=== PATIENT | female | born 1975 | race African-American/Black ===

== ENCOUNTER 2024-02-16 20:12 | Emergency (ER) | payer OTHER, SELFPAY ==
[2024-02-16 20:19] VITALS: BP 153/88; PULSE 100; RESP 16; TEMP 36.4; O2SAT 100
[2024-02-16 20:48] LABS: Add Urine Microscopic? NO; Appearance Urine Clear (Clear); Bilirubin Urine Negative (Negative); Blood Urine Negative (Negative); Color Urine Yellow (Yellow); Glucose Urine UA Negative (Negative); Ketones Urine Negative (Negative); Leukocyte Esterase Ur Negative LEU/UL (Negative); Nitrate Urine Negative (Negative); Protein Urine Negative (Negative); Specific Grav Ur 1.014 (1.001-1.035); Urobilinogen Urine 0.2 mg/dL (<2.0)
[2024-02-16 20:54] VITALS: BP 107/72; PULSE 85; RESP 18; O2SAT 100
[2024-02-16] MEDS: SODIUM CHLORIDE 0.9% IV 1,000 ML 999 ML IV CONT (21:06)
[2024-02-16 21:09] LABS: Basophils Percent Auto 0.7 % (0.2-1.2); Eosinophils Absolute Auto 0.1 K/mm3 (0-0.3); Eosinophils Percent Auto 1.8 % (0-4.4); Hematocrit 35.8 % (37.0-47.0); Hemoglobin 11.4 g/dL (12.0-15.0); Lymphocytes Absolute Auto 2.28 K/mm3 (0.9-3.2); Lymphocytes Percent Auto 41.5 % (18.3-44.2); Mean Corpuscular HGB Conc 31.8 g/dl (32-36); Mean Corpuscular Hemoglobin 28.7 pg (26-34); Mean Corpuscular Volume 90.2 fl (80-100); Mean Platelet Volume 9.2 fl (7.4-10.4); Monocytes Absolute Auto 0.5 K/mm3 (0.1-0.6); Monocytes Percent Auto 9.3 % (2.6-8.5); Neutrophils Absolute Auto 2.6 K/mm3 (1.3-6.7); Neutrophils Percent Auto 46.7 % (45.5-73.1); Platelet Count Result 301 k/mm3 (150-375); Red Blood Count 3.97 M/mm3 (4.2-5.4); Red Cell Distribution Width 13.2 % (11.5-14.5); White Blood Count 5.5 K/mm3 (4.5-10.0)
[2024-02-16 21:12] LABS: BEDSIDEPREGUCG Negative (Negative)
[2024-02-16 21:19] LABS: Alanine Aminotransferase 15 U/L (6-35); Albumin Level 4.2 g/dL (3.5-5.1); Alkaline Phosphatase 76 U/L (38-126); Anion Gap 9 mmol/L (4-12); Aspartate Amino Transferase 20 U/L (14-36); Bilirubin,Total 0.3 mg/dL (0.2-1.3); Blood Urea Nitrogen 11 mg/dL (7-17); Calcium 9.2 mg/dL (8.4-10.2); Carbon Dioxide 22 mmol/L (22-30); Chloride 105 mmol/L (98-107); Estimated CRCL calculation 66 ml/min; Estimated Glomerular Filt Rate > 60; Glucose 115 mg/dL (65-110); Lipase 47 U/L (23-300); Potassium 3.7 mmol/L (3.4-5.0); Sodium 136 mmol/L (137-145)
--- NOTE | 2024-02-16 22:16 | ED.NAVMDI ---
HPI - Nausea/Vomiting/Diarrhea General Chief complaint: Nausea/Vomiting/Diarrhea Stated complaint: n/d, food poisoning? Time Seen by Provider: 02/16/24 20:25 Source: patient Mode of arrival: ambulatory Limitations: no limitations History of Present Illness HPI Narrative: He 48-year-old otherwise healthy here with the complaints of nausea, vomiting, diarrhea since last 5 days. Patient states that she ate foot and along the MCL were following days she started having the symptoms. She denies any blood in the stool. No history of fever or chills. MD elicited complaint: nausea, vomiting and diarrhea Onset (ago): day(s) (5) Description of vomiting: watery Associated nausea: Yes Associated abdominal pain: No Location of pain: none Severity: moderate Relieving factors: none Context: possible food poisoning Associated symptoms: denies other symptoms Related Data Allergies Allergy/AdvReac Type Severity Reaction Status Date / Time No Known Allergies Allergy Verified 02/16/24 20:55 Review of Systems Review of Systems: All systems reviewed & are unremarkable except as noted in HPI and below Constitutional: Constitutional: Reports no additional constitutional complaints Eyes: Eyes: Reports no additional eye complaints ENT: Reports system reviewed and no additional complaints, except as documented Cardiovascular: Cardiovascular: Reports no additional cardiovascular complaints Respiratory: Respiratory: Reports no additional respiratory complaints Gastrointestinal: Gastrointestinal: Reports as per HPI Musculoskeletal: Musculoskeletal: Reports no additional musculoskeletal complaints Exam Narrative: GENERAL: Well-appearing, well-nourished, and in no acute distress. HEAD: Normocephalic, atraumatic. EYES: PERRLA and EOMI. NECK: Supple. CHEST: Clear to auscultation. No respiratory distress. HEART: Regular rate and rhythm. No murmur heard. Normal peripheral pulses. ABDOMEN: Soft, nontender, nondistended, normal active bowel sounds. EXTREMITIES: Normal range of motion. No edema. SKIN: Warm, dry, no rash. NEURO: No focal deficits. Alert and oriented x3. PSYCH: Normal mood and affect. Course Course Emergency Course: Patient had no further episodes of nausea vomiting however she did give a stool sample we did send a culture. Her lab work is unremarkable after hydration she is feeling much better. Vital Signs Vital signs: Vital Signs Temperature 36.4 C L 02/16/24 20:19 Pulse Rate 100 02/16/24 20:19 Respiratory Rate 16 02/16/24 20:19 Blood Pressure 153/88 H 02/16/24 20:19 Pulse Oximetry 100 02/16/24 20:19 Oxygen Delivery Room Air 02/16/24 20:19 Temperature 36.4 C L 02/16/24 20:19 Pulse Rate 85 02/16/24 20:54 Respiratory Rate 18 02/16/24 20:54 Blood Pressure 107/72 02/16/24 20:54 Pulse Oximetry 100 02/16/24 20:54 Oxygen Delivery Room Air 02/16/24 20:19 MDM - Nausea/Vomiting/Diarrhea MDM Narrative Medical decision making narrative: 48-year-old otherwise healthy here with complaints of nausea, vomiting, diarrhea for past 5 days no recent antibiotic use suspicion for C diff is very minimal. Obtain stool for culture. Abhi hydrated with normal saline. Differential Diagnosis Differential diagnosis: Likely traveler's diarrhea, food poisoning, gastroenteritis and dehydration Medical Records Attestation: I reviewed the patient's medical records. Lab Data 02/16/24 21:03 02/16/24 21:03 Labs: Lab Results 02/16/24 02/16/24 02/16/24 Range/Units 20:38 21:03 21:10 WBC 5.5 (4.5-10.0) K/mm3 RBC 3.97 L (4.2-5.4) M/mm3 Hgb 11.4 L (12.0-15.0) g/dL Hct 35.8 L (37.0-47.0) % MCV 90.2 (80-100) fl MCH 28.7 (26-34) pg MCHC 31.8 L (32-36) g/dl RDW 13.2 (11.5-14.5) % Plt Count 301 (150-375) k/mm3 MPV 9.2 (7.4-10.4) fl Immature Gran % (Auto) 0.0 (0-0.5) % Neut % (Auto) 46.7 (45.5-73.1) % Lymp
[2024-02-22 05:43] LABS: Norovirus RNA PCR, Stool NOT DETECTED
== END 2024-02-16 23:10 | disposition home or self-care (01) ==
PROVIDERS: Emergency Medicine; Emergency Provider Family Medicine
DX: K52.9 Noninfective gastroenteritis and colitis, unspecified (principal)
CPT/HCPCS: 36415; 80053; 81003; 81025; 83690; 85025; 87045; 87427; 87449; 87798; 96360; 99283; J7030